=== PATIENT | male | born 1970 | race Caucasian/White ===

== ENCOUNTER → 2018-03-06 | Emergency (ER) | payer OTHER ==
[~2018-03-06] VITALS: Ht 177.8 cm; Wt 97.1 kg
[~2018-03-06] MED LIST: PANADOL EXTRA500 MG PO
== END | disposition home or self-care (01) ==
LOC: ER 14:12
DX: S01.02XA Laceration with foreign body of scalp, initial encounter (principal); S10.0XXA Contusion of throat, initial encounter; W18.39XA Other fall on same level, initial encounter; Y93.89 Activity, other specified; Y92.89 Other specified places as the place of occurrence of the external cause; Y99.8 Other external cause status

== ENCOUNTER 2022-08-30 11:45 | Outpatient (CLI) | payer OTHER | END 2022-08-30 11:53 | disposition home or self-care (01) | LOC: MRI 11:45 | PROVIDERS: ATTEND General Practice | DX: M54.9 Dorsalgia, unspecified (principal); M54.2 Cervicalgia; M62.830 Muscle spasm of back | CPT/HCPCS: 72141 ==

== ENCOUNTER 2023-05-12 14:21 | Emergency (ER) | payer OTHER ==
[~2023-05-12] VITALS: Ht 177.8 cm; Wt 97.5 kg
== END 2023-05-12 18:50 | disposition home or self-care (01) ==
LOC: ER 14:21
DX: R10.84 Generalized abdominal pain (principal)

== ENCOUNTER 2023-08-15 17:22 | Emergency (ER) | payer OTHER ==
[~2023-08-15] VITALS: Ht 177.8 cm; Wt 97.5 kg
[2023-08-15 18:43] LABS: HEMATOCRIT 39.1 % (39.0-48.0); HEMOGLOBIN 13.1 g/dL (13-16.00); MEAN CORPUSCULAR HEMOGLOBIN 28.5 pg (27.00-32.0); MEAN CORPUSCULAR HGB CONC 33.5 g/dl (32.0-36.0); PLATELET COUNT 230 K/uL (150-450); RED CELL DISTRIBUTION WIDTH 14.8 % (11.5-14.5)
== END 2023-08-15 19:41 | disposition home or self-care (01) ==
LOC: ER 17:22
PROVIDERS: General Practice
DX: R10.31 Right lower quadrant pain (principal); R10.32 Left lower quadrant pain

== ENCOUNTER 2023-08-19 07:20 | Outpatient (CLI) | payer OTHER | END 2023-08-19 08:14 | disposition home or self-care (01) | LOC: TOM 07:20 | PROVIDERS: ATTEND Specialist | DX: R10.30 Lower abdominal pain, unspecified (principal) ==

== ENCOUNTER 2024-07-04 01:13 | Emergency (ER) | payer OTHER ==
[~2024-07-04] VITALS: Ht 177.8 cm; Wt 97.5 kg
[2024-07-04] MEDS ORDERED: PANTOPRAZOLE SO40 MG PO (01:19)
[2024-07-04] MEDS ORDERED: FAMOTIDINE20 MG PO (01:19)
[2024-07-04] MEDS ORDERED: ONDANSETRON HCL 2 MG/ML VIAL IV STA (02:53)
[2024-07-04] MEDS ORDERED: FAMOTIDINE/PF 20 MG/2 ML VIAL IV PUSH STA (02:54)
[2024-07-04] MEDS ORDERED: 0.9 % SODIUM CHLORIDE 1,000 ML IV ONE (03:00)
[2024-07-04] MEDS ORDERED: MAG HYDROX/ALUMINUM HYD/SIMETH 30 ML BLIST.PACK PO STA (03:27)
[2024-07-04 03:29] LABS: HEMATOCRIT 38.1 % (39.0-48.0); HEMOGLOBIN 12.8 g/dL (13-16.00); MEAN CELL VOLUME 84.1 fL (80.0-100.00); MEAN CORPUSCULAR HEMOGLOBIN 28.2 pg (27.00-32.0); MEAN CORPUSCULAR HGB CONC 33.5 g/dl (32.0-36.0); PLATELET COUNT 254 K/uL (150-450); RED BLOOD COUNT 4.53 M/uL (4.00-6.00); RED CELL DISTRIBUTION WIDTH 14.7 % (11.5-14.5)
[2024-07-04 03:43] LABS: PARTIAL THROMBOPLASTIN TIME 30.6 SECONDS (22.0-34.0); PROTHROMBIN TIME 10.5 SECONDS (9.0-11.5)
[2024-07-04 03:54] LABS: ALBUMIN 3.7 gm/dL (3.4-5.0); BILIRUBIN TOTAL 0.63 mg/dL (0.3-1.2); BILIRUBIN,CONJUGATED 0.18 mg/dL (0.0-0.2); BILIRUBIN,UNCONJUGATED 0.45 mg/dL (0.0-0.6); CREATININE SERUM 1.01 mg/dL (0.70-1.30); GFR 77.27; GLOBULINA 3.4 G/DL (2.4-3.5); POTASSIUM 4.13 mEq/L (3.5-5.1); TOTAL PROTEIN 7.1 gm/dL (6.4-8.2)
[2024-07-04 04:47] LABS: PH,URINE 6.5 (5.0-8.0); URINE APPEARANCE Clear; URINE BILIRRUBIN Negative (NEGATIVE); URINE BLOOD Negative; URINE COLOR Yellow; URINE GLUCOSE Negative (NEGATIVE); URINE LEUKOCYTE Negative; URINE NITRATE Negative; URINE PROTEIN Negative (NEGATIVE)
[2024-07-04 04:50] LABS: URINE EPITHELIAL CELLS 2.7 uL (0.0-38.8); URINE WBC 5.7 uL (0.0-23.2)
[2024-07-04 04:51] LABS: URINE BACTERIA 1.2 uL (0.0-1933); URINE KETONE 40 (NEGATIVE)
[2024-07-04] MEDS ORDERED: METOCLOPRAMIDE HCL 5 MG/ML VIAL IM STA (06:13)
[2024-07-04] MEDS ORDERED: HYOSCYAMINE SULFATE 0.125 MG TAB.SUBL SL ONE (06:15)
== END 2024-07-04 13:19 | disposition home or self-care (01) ==
LOC: ER 01:14
PROVIDERS: General Practice
DX: K21.9 Gastro-esophageal reflux disease without esophagitis (principal); R10.9 Unspecified abdominal pain
CPT/HCPCS: 36415; 74022; 74177; 76700; Q9965